=== PATIENT | male | born 1970 | race Caucasian/White ===

== ENCOUNTER 2022-04-04 08:43 | Observation (INO) ==
[2022-04-04] MEDS ORDERED: SODIUM CHLORIDE 0.9% 500 ML IV ONE (09:23)
[2022-04-04 10:08] LABS: Basophils # (auto) 0.06 K/uL (0-0.2); Basophils % (auto) 0.3 %; Hematocrit (blood only) 45.4 % (40.1-51.0); Hemoglobin 16.1 g/dl (14.0-18.0); Immature Granulocytes % (auto) 0.9 %; Lymphocytes % (auto) 7.9 %; Mean Corpuscular Hemoglobin 30.9 pg (25.0-34.0); Mean Corpuscular Hgb Conc 35.5 g/dL (32.0-36.0); Mean Corpuscular Volume 87.1 fL (80.0-100.0); Mean Platelet Volume 9.7 fL (9.4-12.4); Monocytes % (auto) 7.5 %; Neutrophils # (auto) 18.99 K/uL (1.4-6.5); Neutrophils % (auto) 83.4 %; Platelet Count 215 K/uL (130-400); RDW Coefficient of Variation 11.8 % (11.5-14.5); RDW Standard Deviation 37.3 fL (36.4-46.3); Red Blood Count 5.21 M/uL (4.63-6.08); White Blood Count 22.75 K/ul (4.8-10.8)
--- NOTE | 2022-04-04 10:25 | Emergency Department Note ---
Impression & Plan Acute appendicitis, Abdominal pain, Leukocytosis ED Provider Note NAME: JADA NJ AGE: 51 SEX: M : 1970 ARRIVES VIA: Walk-In INFORMANT: Patient ED PROVIDER(S): Jem Acosta DO CHIEF COMPLAINT: RLQ abd pain HPI: Patient is a 51-year-old male who presents to the ER for right lower quadrant abdominal pain. He notes this started this past Sunday. Sunday night he believes he ate something at home, that did not sit well in his stomach. He had diarrhea following this. He has had temperatures as high as 100. He has been taking Tylenol and Motrin intermittently. He was seen and evaluated at outside facility and had a white count 21,000. Denies any dysuria, urgency, or frequency. Pain is focal sharp stabbing and a 5 out of 10 in that right lower quadrant. He has not been eating or drinking much. ROS: See above HPI for pertinent positives & negatives. A total of 10 systems reviewed and were otherwise negative. PAST MEDICAL HISTORY:See Below PAST SURGICAL HISTORY:See Below FAMILY HISTORY:See Below SOCIAL HISTORY:See Below HOME MEDICATIONS:See Below ALLERGIES:See Below VITALS:See Below PHYSICAL EXAMINATION: GENERAL: Sitting up in bed, alert, well appearing, well nourished, no distress, non-toxic EYE EXAM: normal conjunctiva. OROPHARYNX: no exudate, no erythema, lips, buccal mucosa, and tongue normal and mucous membranes are moist NECK: supple, no nuchal rigidity, no adenopathy, non-tender LUNGS: Clear to auscultation. Normal chest wall mechanics HEART: no murmurs, S1 normal and S2 normal ABDOMEN: abdomen soft, RLQ abd pain, normo-active bowel sounds, no masses, no rebound or guarding. UPPER EXTREMITIES: upper extremities are grossly normal. LOWER EXTREMITIES: No pitting edema. NEURO EXAM: Normal sensorium, cranial nerves II-XII grossly intact, normal speech, no gross weakness of arms, no gross weakness of legs. MEDICAL DECISION MAKING: Patient is a 51-year-old male who presents the ER for right lower quadrant abdominal pain. IV was established blood work was obtained. Labs show l eukocytosis of 22,000. No significant anemia. BMP along with LFTs bilirubin and lipase was remarkable for T bili of 1.7. UA was unremarkable. COVID was negative. CT abdomen pelvis shows acute appendicitis with significant mount of surrounding infiltration. Patient was given Zosyn. He was given Toradol. He was updated bedside. Discussed with Dr. Torres who evaluate the patient and please see his note for further management. Triage Nursing notes reviewed. Limited review of prior medical records performed Vital Signs: reviewed and remarkable for tachy Differential diagnosis: Differential diagnoses includes but is not limited to gastritis, peptic ulcer disease, GERD, gallbladder disease, pancreatitis, small bowel obstruction, acute coronary syndrome, pericarditis, ischemic bowel, irritable bowel disease, irritable bowel syndrome, appendicitis, diverticulitis, malignancy, hernia, urinary tract infection, torsion, perforation, trauma, infectious. ER treatment provided: See below Diagnostics interpreted by me: ECG: none Cardiac Monitoring: An order was placed for continuous cardiac monitoring. The monitor shows a rate of 110 with sinus rhythm. Laboratory studies: As stated above and show below. Imaging studies: CT abdomen pelvis shows acute appendicitis. Consultation(s): none Procedures: none Critical Care: None Past Med/Surg History Medical History (Updated 04/04/22 @ 13:50 by Jem Acosta DO) Amputation finger left ring finger Seasonal allergies Surgical History (Updated 04/04/22 @ 13:43 by Tatiana Hendrickson RN) Hx of colonoscopy Hx of hand surgery left hand Social History (Updated 04/04/22 @ 13:27 by Tatiana Hendrickson RN) Smoking Status: Never smoker Communication Ability: Effective Hearing Ability: Normal Beliefs That Will Affect Care: None marital status: Current Living Situation: Spouse current occupational status: employed current occupation: teacher Feels Safe at Home: Yes Allergies Allergies Allergy/AdvReac Type Severity Reaction Status Date / Time No Known Allergies Allergy Unknown Verified 04/04/22 11:31 Home Meds Home Medications Medication Instructions Recorded Confirmed montelukast 10 mg tablet 10 mg PO DAILY in the summer 04/04/22 04/04/22 Results & Data (ED) Vital Signs Vital Signs - 24 hr 04/04/22 09:07 04/04/22 10:44 04/04/22 12:09 Temperature 37.5 C Temperature Source Temporal Artery Scan Pulse Rate 116 H Pulse Rate [Finger] 95 H 97 H Pulse Rhythm [Finger] Pulse Strength [Finger] Respiratory Rate 20 16 16 Respiratory Effort / Characteristics Non-Labored Non-Labored Spontaneous Non-Labored Spontaneous Respiratory Depth Normal Normal Normal Respiratory Pattern Blood Pressure 120/76 Blood Pressure [Left Arm] Blood Pressure [Right Arm] 127/57 L 132/69 Blood Pressure Mean 90 Blood Pressure Mean [Left Arm] Blood Pressure Mean [Right Arm] 80 90 Blood Pressure Position [Left Arm] Pulse Oximetry 96 96 95 Oxygen Delivery Method Room Air Room Air Room Air Sepsis Recent Fever Within 48 Hours No Sepsis New/Unexplained Change in Mental Status N/A Sepsis Action Taken by Nursing No Action Required 04/04/22 13:07 Temperature 37.3 C Temperature Source Oral Pulse Rate Pulse Rate [Finger] 101 H Pulse Rhythm [Finger] Regular Pulse Strength [Finger] Normal Respiratory Rate 18 Respiratory Effort / Characteristics Non-Labored Spontaneous Respiratory Depth Normal Respiratory Pattern Regular Blood Pressure Blood Pressure [Left Arm] 123/67 Blood Pressure [Right Arm] Blood Pressure Mean Blood Pressure Mean [Left Arm] 85 Blood Pressure Mean [Right Arm] Blood Pressure Position [Left Arm] Lying Pulse Oximetry 94 Oxygen Delivery Method Room Air Sepsis Recent Fever Within 48 Hours Sepsis New/Unexplained Change in Mental Status Sepsis Action Taken by Nursing Laboratory Data Result diagrams: 04/04/22 09:55 04/04/22 09:55 Lab Results 04/04/22 04/04/22 04/04/22 Range/Units 09:55 09:55 10:21 WBC 22.75 H (4.8-10.8) K/ul RBC 5.21 (4.63-6.08) M/uL Hgb 16.1 (14.0-18.0) g/dl Hct 45.4 (40.1-51.0) % MCV 87.1 (80.0-100.0) fL MCH 30.9 (25.0-34.0) pg MCHC 35.5 (32.0-36.0) g/dL RDW Std Deviation 37.3 (36.4-46.3) fL RDW Coeff of [place] 11.8 (11.5-14.5) % Plt Count 215 (130-400) K/uL MPV 9.7 (9.4-12.4) fL Immature Gran % (Auto) 0.9 % Neut % (Auto) 83.4 % Lymph % (Auto) 7.9 % [place] % (Auto) 7.5 % Eos % (Auto) 0.0 % Baso % (Auto) 0.3 % Neut # (Auto) 18.99 H (1.4-6.5) K/uL Lymph # (Auto) 1.80 (1.2-3.4) K/uL [place] # (Auto) 1.70 H (0.24-0.82) K/uL Eos # (Auto) 0.00 (0-0.50) K/uL Baso # (Auto) 0.06 (0-0.2) K/uL Immature Gran # (Auto) 0.20 H (0.00-0.02) K/uL Sodium 135 L (136-145) mmol/L Potassium 4.1 (3.5-5.1) mmol/L Chloride 99 (98-107) mmol/L Carbon Dioxide 28 (21-32) mmol/L Anion Gap 8 (3-11) BUN 16 (6-23) mg/dl Creatinine 1.06 (0.6-1.4) mg/dl Est Cr Clr Drug Dosing 93.2 ml/min Est GFR ( Amer) 93.7 ml/min Est GFR (Non-Af Amer) 80.9 ml/min BUN/Creatinine Ratio 15.1 (10-20) Glucose 103 H (70-99(Fasting)) mg/dl Calcium 9.6 (8.5-10.1) mg/dl Total Bilirubin 1.7 H (0.2-1.0) mg/dl AST 16 (13-39) U/L ALT 21 (7-52) U/L Alkaline Phosphatase 59 (34-104) U/L Total Protein 7.9 (6.0-8.3) gm/dl Albumin 4.4 (3.4-5.0) gm/dl Globulin 3.5 (2.5-4.0) gm/dl Albumin/Globulin Ratio 1.3 (0.9-2) Lipase 5 L (11-82) U/L Urine Color Urine Appearance (Clear) Urine pH (4.5-7.5) Ur Specific [place] (1.000-1.030) Urine Protein (Negative) Urine Glucose (UA) (Negative) Urine Ketones (Negative) Urine Blood (Negative) Urine Nitrite (Negative) Urine Bilirubin (Negative) Urine Urobilinogen (Negative) Ur Leukocyte Esterase (Negative) Urine WBC (Auto) (0-5) /hpf Urine RBC (Auto) (0-4) /hpf U Hyaline Cast (Auto) (0-5) /lpf U Epithel Cells (Auto) (0-5) /lpf Urine Bacteria (Auto) (Negative) SARS-CoV-2, RNA, NAAT NEGATIVE (NEGATIVE) 04/04/22 Range/Units 10:49 WBC (4.8-10.8) K/ul RBC (4.63-6.08) M/uL Hgb (14.0-18.0) g/dl Hct (40.1-51.0) % MCV (80.0-100.0) fL MCH (25.0-34.0) pg MCHC (32.0-36.0) g/dL RDW Std Deviation (36.4-46.3) fL RDW Coeff of [place] (11.5-14.5) % Plt Count (130-400) K/uL MPV (9.4-12.4) fL Immature Gran % (Auto) % Neut % (Auto) % Lymph % (Auto) % [place] % (Auto) % Eos % (Auto) % Baso % (Auto) % Neut # (Auto) (1.4-6.5) K/uL Lymph # (Auto) (1.2-3.4) K/uL [place] # (Auto) (0.24-0.82) K/uL Eos # (Auto) (0-0.50) K/uL Baso # (Auto) (0-0.2) K/uL Immature Gran # (Auto) (0.00-0.02) K/uL Sodium (136-145) mmol/L Potassium (3.5-5.1) mmol/L Chloride (98-107) mmol/L Carbon Dioxide (21-32) mmol/L Anion Gap (3-11) BUN (6-23) mg/dl Creatinine (0.6-1.4) mg/dl Est Cr Clr Drug Dosing ml/min Est GFR ( Amer) ml/min Est GFR (Non-Af Amer) ml/min BUN/Creatinine Ratio (10-20) Glucose (70-99(Fasting)) mg/dl Calcium (8.5-10.1) mg/dl Total Bilirubin (0.2-1.0) mg/dl AST (13-39) U/L ALT (7-52) U/L Alkaline Phosphatase (34-104) U/L Total Protein (6.0-8.3) gm/dl Albumin (3.4-5.0) gm/dl Globulin (2.5-4.0) gm/dl Albumin/Globulin Ratio (0.9-2) Lipase (11-82) U/L Urine Color Dark Yellow Urine Appearance Clear (Clear) Urine pH 5.0 (4.5-7.5) Ur Specific [place] 1.021 (1.000-1.030) Urine Protein Trace H (Negative) Urine Glucose (UA) Negative (Negative) Urine Ketones 2+ H (Negative) Urine Blood 1+ H (Negative) Urine Nitrite Negative (Negative) Urine Bilirubin Negative (Negative) Urine Urobilinogen Negative (Negative) Ur Leukocyte Esterase Negative (Negative) Urine WBC (Auto) 1-5 (0-5) /hpf Urine RBC (Auto) 0-4 (0-4) /hpf U Hyaline Cast (Auto) 1-5 (0-5) /lpf U Epithel Cells (Auto) 5-10 H (0-5) /lpf Urine Bacteria (Auto) Negative (Negative) SARS-CoV-2, RNA, NAAT (NEGATIVE) Administered Medications Discontinued Medications Sodium Chloride (Nss) 500 mls @ 999 mls/hr IV .Q31M ONE Stop: 04/04/22 09:53 Last Infusion: 04/04/22 10:41 Dose: 0 mls/hr Documented By: Admin: 04/04/22 10:03 Dose: 999 mls/hr Documented By: ELAN Piperacillin Sod/Tazobactam Sod (Zosyn) 4.5 gm in 120 mls @ 240 mls/hr IV NOW ONE Stop: 04/04/22 11:51 Last Infusion: 04/04/22 12:39 Dose: 0 mls/hr Documented By: Admin: 04/04/22 12:07 Dose: 240 mls/hr Documented By: [place] Ioversol (Optiray 350 100ml) 84 ml IV ONCE ONE Stop: 04/04/22 11:00 Last Admin: 04/04/22 11:00 Dose: 84 ml Documented By: CHANDA Ketorolac Tromethamine (Ketorolac Tromethamine 15 Mg/Ml Vial) 15 mg IV NOW ONE Stop: 04/04/22 10:36 Last Admin: 04/04/22 10:41 Dose: 15 mg Documented By: NMS Imaging Data Radiologist's Impression: Abdomen/Pelvis CT 04/04/22 09:[address] WITH IV CONTRAST CT DOSE: 815.90 mGycm HISTORY: Acute right lower quadrant abdominal pain RLQ abd pain TECHNIQUE: Multiaxial CT images of the abdomen and pelvis were performed foll owing the IV administration of 84 cc of Optiray, A dose lowering technique was utilized adhering to the principles of ALARA. COMPARISON STUDY: None. FINDINGS: Clear lung bases. No pneumatosis or pneumoperitoneum. The imaged inferior cardiac chambers are unremarkable. The spleen, pancreas, gallbladder and adrenal glands are within normal limits. The liver is within normal limits. Patency of the hepatic and portal veins. Unremarkable kidneys. No hydronephrosis. Subcentimeter hypodensity of the superior pole left kidney is too small to characterize, likely a cyst. The bladder wall thickening with partial distention. Mild prostamegaly. No abdominal aortic aneurysm or lymphadenopathy identified. No bowel obstruction. Scattered air-fluid levels are noted within the right hemicolon. Mild wall thickening of the terminal ileum is likely reactive. The appendix is dilated and fluid-filled measuring up to 1.3 cm transversely. There are a few subcentimeter appendicolith is noted measuring up to 6 mm. Moderate periappendiceal inflammation with trace amount of free fluid within the abdominal right lower quadrant. No abscess. Unremarkable soft tissues. No acute fracture. IMPRESSION: 1. Acute appendicitis with subcentimeter appendicoliths. No pneumoperitoneum or abscess. 2. No bowel obstruction. 3. Additional findings as above. ACT 112: Negative or not required by law. The above report was generated using voice recognition software. It may contain grammatical, syntax or spelling errors. Electronically signed by: Rodolfo Sommer M.D. 04/04/2022 11:59 AM Discharge Plan Visit Data Chief Complaint: Referred by Doctor Stated Complaint: REFERRED BY , CT SCAN ED Provider: Jem Acosta Discharge Problem: Acute appendicitis, Abdominal pain, Leukocytosis Discharge Instructions Interventions: ED Discharge Assessment Last Done: 04/04/22 12:59 Forms Stand Alone Forms: My [facility] [employer] Prescriptions Prescriptions: No Action montelukast 10 mg tablet 10 mg PO DAILY Referrals Referrals: Jaime Ruiz MD [Primary Care Provider] -
[2022-04-04] MEDS ORDERED: KETOROLAC TROMETHAMINE 15 MG/ML VIAL IV ONE (10:35)
[2022-04-04 10:45] LABS: Albumin Globulin Ratio 1.3 (0.9-2); Albumin Level 4.4 gm/dl (3.4-5.0); BUN Creatinine Ratio 15.1 (10-20); Bilirubin,Total 1.7 mg/dl (0.2-1.0); Calcium 9.6 mg/dl (8.5-10.1); Creatinine Clr Calc Pharmacy 93.2 ml/min; Est GFR (African American) 93.7 ml/min; Est GFR (Non-African American) 80.9 ml/min; Globulin 3.5 gm/dl (2.5-4.0); Potassium 4.1 mmol/L (3.5-5.1); Total Protein 7.9 gm/dl (6.0-8.3)
[2022-04-04] MEDS ORDERED: OPTIRAY 350 100ml IV ONE (10:59)
[2022-04-04 11:08] LABS: Appearance Urine Clear (Clear); Bacteria Urine Automated Negative (Negative); Bilirubin Urine Negative (Negative); Blood Urine 1+ (Negative); Color Urine Dark Yellow; Glucose Urine UA Negative (Negative); Ketones Urine 2+ (Negative); Leukocyte Esterase Urine Negative (Negative); Nitrite Urine Negative (Negative); Protein Urine Trace (Negative); RBC Urine Automated 0-4 /hpf (0-4); Specific Gravity Urine 1.021 (1.000-1.030); Urobilinogen Urine Negative (Negative)
[2022-04-04] MEDS ORDERED: PIPERACILLIN/TAZOBACTAM 4.5 GM/120 ML BAG IV ONE (11:22)
--- NOTE | 2022-04-04 12:02 | CT Scan Report ---
ABDOMEN AND PELVIS CT WITH IV CONTRAST CT DOSE: 815.90 mGycm HISTORY: Acute right lower quadrant abdominal pain RLQ abd pain TECHNIQUE: Multiaxial CT images of the abdomen and pelvis were performed following the IV administrat ion of 84 cc of Optiray, A dose lowering technique was utilized adhering to the principles of ALARA. COMPARISON STUDY: None. FINDINGS: Clear lung bases. No pneumatosis or pneumoperitoneum. The imaged inferior cardiac chambers are unremarkable. The spleen, pancreas, gallbladder and adrenal glands are within normal limits. The liver is within normal limits. Patency of the hepatic and portal veins. Unremarkable kidneys. No hydr onephrosis. Subcentimeter hypodensity of the superior pole left kidney is too small to characterize, likely a cyst. The bladder wall thickening with partial distention. Mild prostamegaly. No abdominal a ortic aneurysm or lymphadenopathy identified. No bowel obstruction. Scattered air-fluid levels are noted within the right hemicolon. Mild wall thic kening of the terminal ileum is likely reactive. The appendix is dilated and fluid-filled measuring u p to 1.3 cm transversely. There are a few subcentimeter appendicolith is noted measuring up to 6 mm. Moderate periappendiceal inflammation with trace amount of free fluid within the abdominal right lowe r quadrant. No abscess. Unremarkable soft tissues. No acute fracture. IMPRESSION: 1. Acute appendicitis with subcentimeter appendicoliths. No pneumoperitoneum or abscess. 2. No bowel obstruction. 3. Additional findings as above. ACT 112: Negative or not required by law. The above report was generated using voice recognition software. It may contain grammatical, syntax o r spelling errors. Electronically signed by: Rodolfo Sommer M.D. 04/04/2022 11:59 AM
[2022-04-04] MEDS ORDERED: BACITRACIN OINT 15 GM TUBE ONE (13:04)
[2022-04-04] MEDS ORDERED: LIDOCAINE 1% LOCAL 20 ML VIAL ONE (13:04)
[2022-04-04] MEDS ORDERED: BUPIVACAINE 0.5 % 5 MG/1 ML MPF 30ML VIAL ONE (13:04)
[2022-04-04] MEDS ORDERED: fentaNYL citrate 100 MCG/2 ML VIAL ONE ×2 (13:07→15:11)
[2022-04-04] MEDS ORDERED: ROCURONIUM BROMIDE 10 MG/ML 5 ML VIAL IV ONE (13:07)
[2022-04-04] MEDS ORDERED: DEXAMETHASONE SOD INJ 4 MG/ML VIAL ONE (13:07)
[2022-04-04] MEDS ORDERED: LIDOCAINE 2% 2 ML VIAL/AMP(20MG/ML) INFIL ONE (13:07)
[2022-04-04] MEDS ORDERED: SUGAMMADEX SODIUM 200 MG/2 ML VIAL IV ONE (13:07)
[2022-04-04] MEDS ORDERED: PROPOFOL IV EMULSION 10 MG/ML 20 ML VIAL IV ONE (13:07)
[2022-04-04] MEDS ORDERED: MIDAZOLAM HCL 1 MG/ML 2ML VIAL ONE (13:07)
[2022-04-04] MEDS ORDERED: ONDANSETRON INJ 2 MG/ML 2 ML VIAL ONE (13:07)
[2022-04-04] MEDS ORDERED: ONDANSETRON INJ 2 MG/ML 2 ML VIAL IV PRN ×2 (13:20→16:41)
[2022-04-04] MEDS ORDERED: HYDROmorphone INJ 2 MG/ML SYR/VIAL IV PRN (13:20)
[2022-04-04] MEDS ORDERED: ATROPINE SULFATE 0.1 MG/ML 10ML SYR IV PRN (13:20)
[2022-04-04] MEDS ORDERED: fentaNYL citrate 100 MCG/2 ML VIAL IV PRN (13:20)
[2022-04-04] MEDS ORDERED: ePHEDrine sulfate 50 MG/ML AMP IV PRN (13:20)
--- NOTE | 2022-04-04 13:22 | Anesthesiology Consultation ---
Date of Service April 04, 2022 Assessment & Plan (1) Encounter for pre-operative examination: Chart Review Chart Review: Acceptable Risk for Surgery and Patient NOT seen in Pre Admission Testing Consults Requested none History Surgery Operation Date: 04/04/22 12:00 Proposed Procedures p Laparoscopic Appendectomy - Ayesha Torres MD Height/Weight Height: 5 ft 10 in Weight: 90.3 kg Allergies Allergy/AdvReac Type Severity Reaction Status Date / Time No Known Allergies Allergy Unknown Verified 04/04/22 11:31 Medications Home Medications Medication Instructions Recorded Confirmed Last Taken montelukast 10 mg tablet 10 mg PO DAILY in the summer 04/04/22 04/04/22 Unknown NPO Date Last Intake of Fluids: 04/04/22 Time Last Intake of Fluids: 07:30 Last Intake of Fluids Comment: "water" Date Last Intake of Solids: 04/04/22 Time Last Intake of Solids: 05:30 Last Intake of Solids Comment: "cereal with blueberries" Past Medical History Medical History (Updated 04/04/22 @ 13:22 by Bean Niño MD) Amputation finger left ring finger Seasonal allergies Exercise / Class Metabolic Activity II 4-5 Yardwork/Stairs/Walk up hill Past Surgical History Surgical History (Updated 04/04/22 @ 13:26 by Tatiana Hednrickson RN) Hx of hand surgery left hand Past Anesthesia History No Hx of Anesthesia Complications and No Family Hx of Anesthesia Complications Social History Smoking Status: Never smoker Physical Exam Vital Signs Last Vital Signs Temp 37.3 C 04/04/22 13:07 Pulse 101 H 04/04/22 13:07 Resp 18 04/04/22 13:07 BP 123/67 04/04/22 13:07 Pulse Ox 94 04/04/22 13:07 O2 Del Method 04/04/22 13:07 Testing Laboratory Results 04/04/22 09:55 04/04/22 09:55 Urine Color Dark Yellow 04/04/22 10:49 Urine Appearance Clear (Clear) 04/04/22 10:49 Urine pH 5.0 (4.5-7.5) 04/04/22 10:49 Ur Specific [place] 1.021 (1.000-1.030) 04/04/22 10:49 Urine Protein Trace (Negative) H 04/04/22 10:49 Urine Glucose (UA) Negative (Negative) 04/04/22 10:49 Urine Ketones 2+ (Negative) H 04/04/22 10:49 Urine Nitrite Negative (Negative) 04/04/22 10:49 Ur Leukocyte Esterase Negative (Negative) 04/04/22 10:49 Urine WBC (Auto) 1-5 /hpf (0-5) 04/04/22 10:49 Urine RBC (Auto) 0-4 /hpf (0-4) 04/04/22 10:49 U Hyaline Cast (Auto) 1-5 /lpf (0-5) 04/04/22 10:49 U Epithel Cells (Auto) 5-10 /lpf (0-5) H 04/04/22 10:49 Urine Bacteria (Auto) Negative (Negative) 04/04/22 10:49
--- NOTE | 2022-04-04 13:51 | Surgery Consultation ---
Date of Consultation April 04, 2022 Assessment & Plan (1) Acute appendicitis: pt si a 51 year-old male who presents with 2 days history RLQ pain, IMP: acute appendicitis, plan, I recommend to do laparoscopic appendectomy, possible open, D/W benefits, risks and alternatives of the surgery, the risks - infection, bleeding, injury other organs, sepsis, abscess, incisional hernia, bowel obstruction, pt understood, he agreed with surgery, he signed informed consent, I answered all questions, pre-op antibiotic, History of Present Illness Reason for Consultation: acute appendicitis Requesting Physician: Jem Acosta MD History of Present Illness CHIEF COMPLAINT: RLQ abd pain HPI: Patient is a 51-year-old male who presents ER for right lower quadrant abdominal pain. He notes this started this past Sunday. Sunday night he believes he ate something at home that did not sit well in his stomach. He had diarrhea following this. He has had temperatures as high as 100. He has been taking Tylenol and Motrin intermittently. He was seen and evaluated at outside facility and had a white count 21,000. Denies any dysuria urgency or frequency. Pain is focal sharp stabbing and a 5 out of 10 in that right lower quadrant. He has not been eating or drinking much. I ( Ayesha Torres MD, ) got a call for consult acute appendicitis, I reviewed pt's H/P, labs, Ct scan with pt, ROS: See above HPI for pertinent positives & negatives. A total of 10 systems reviewed and were otherwise negative. Allergies Allergy/AdvReac Type Severity Reaction Status Date / Time No Known Allergies Allergy Unknown Verified 04/04/22 11:31 Home Medications Medication Instructions Recorded Confirmed Type montelukast 10 mg tablet 10 mg PO DAILY in the summer 04/04/22 04/04/22 History Patient History Medical History (Updated 04/04/22 @ 13:50 by Jem Acosta DO) Amputation finger left ring finger Seasonal allergies Surgical History (Updated 04/04/22 @ 13:43 by Tatiana Hendrickson RN) Hx of colonoscopy Hx of hand surgery left hand Social History (Updated 04/04/22 @ 13:27 by Tatiana Hendrickson RN) Smoking Status: Never smoker Communication Ability: Effective Hearing Ability: Normal Beliefs That Will Affect Care: None marital status: Current Living Situation: Spouse current occupational status: employed current occupation: teacher Feels Safe at Home: Yes Review of Systems Constitutional: as per Subjective / HPI Eyes: as per Subjective / HPI Respiratory: as per Subjective / HPI left rib fx Cardiovascular: as per Subjective / HPI Gastrointestinal: as per Subjective / HPI Genitourinary: + as per Subjective / HPI Musculoskeletal: as per Subjective / HPI Neurologic: as per Subjective / HPI Psychiatric: as per Subjective / HPI Endocrine: as per Subjective / HPI Hematologic / Lymphatic: as per Subjective / HPI Physical Exam Constitutional: WD/WN, vitals as above Eyes: PERRL, conjunctivae normal, anicteric sclerae Neck: trachea midline, no thyromegaly Respiratory: normal respiratory effort, lungs clear to auscultation Cardiovascular: RRR, no murmur, no edema Gastrointestinal (Abdomen): soft, tenderness at RLQ, with rebound pain, no distend, BS +, Musculoskeletal: no cyanosis or clubbing, extremities motor strength 5/5 Neurologic: patellar DTR's 2+ bilat, sensation intact Psychiatric: A+Ox3, euthymic affect Results & Data ([facility]) Vital Signs (Past 12 Hours) Vital Signs Temp Pulse Pulse Resp BP BP BP 04/04/22 13:07 37.3 C 101 H 18 123/67 04/04/22 12:09 97 H 16 132/69 04/04/22 10:44 95 H 16 127/57 L 04/04/22 09:07 37.5 C 116 H 20 120/76 Pulse Ox O2 Del Method 04/04/22 13:07 94 Room Air 04/04/22 12:09 95 Room Air 04/04/22 10:44 96 Room Air 04/04/22 09:07 96 Room Air Laboratory Results Abnormal lab results 04/04/22 04/04/22 04/04/22 Range/Units 09:55 09:55 10:49 WBC 22.75 H (4.8-10.8) K/ul Neut # (Auto) 18.99 H (1.4-6.5) K/uL [place] # (Auto) 1.70 H (0.24-0.82) K/uL Immature Gran # (Auto) 0.20 H (0.00-0.02) K/uL Sodium 135 L (136-145) mmol/L Glucose 103 H (70-99(Fasting)) mg/dl Total Bilirubin 1.7 H (0.2-1.0) mg/dl Lipase 5 L (11-82) U/L Urine Protein Trace H (Negative) Urine Ketones 2+ H (Negative) Urine Blood 1+ H (Negative) U Epithel Cells (Auto) 5-10 H (0-5) /lpf Diagnostic Findings ABDOMEN AND PELVIS CT WITH IV CONTRAST CT DOSE: 815.90 mGycm HISTORY: Acute right lower quadrant abdominal pain RLQ abd pain TECHNIQUE: Multiaxial CT images of the abdomen and pelvis were performed following the IV administration of 84 cc of Optiray, A dose lowering technique was utilized adhering to the principles of ALARA. COMPARISON STUDY: None. FINDINGS: Clear lung bases. No pneumatosis or pneumoperitoneum. The imaged inferior cardiac chambers are unremarkable. The spleen, pancreas, gallbladder and adrenal glands are within normal limits. The liver is within normal limits. Patency of the hepatic and portal veins. Unremarkable kidneys. No hydronephrosis. Subcentimeter hypodensity of the superior pole left kidney is too small to characterize, likely a cyst. The bladder wall thickening with partial distention. Mild prostamegaly. No abdominal aortic aneurysm or lymphadenopathy identified. No bowel obstruction. Scattered air-fluid levels are noted within the right hemicolon. Mild wall thickening of the terminal ileum is likely reactive. The appendix is dilated and fluid-filled measuring up to 1.3 cm transversely. There are a few subcentimeter appendicolith is noted measuring up to 6 mm. Moderate periappendiceal inflammation with trace amount of free fluid within the abdominal right lower quadrant. No abscess. Unremarkable soft tissues. No acute fracture. IMPRESSION: 1. Acute appendicitis with subcentimeter appendicoliths. No pneumoperitoneum or abscess. 2. No bowel obstruction. 3. Additional findings as above. ACT 112: Negative or not required by law.
--- NOTE | 2022-04-04 13:57 | History & Physical Bridge Note ---
Date of Service April 04, 2022 History & Physical Bridge Note I have examined the patient, reviewed the History & Physical and in the interval since the performance of the History & Physical I have noted the following changes of clinical significance: no changes noted
[2022-04-04] MEDS ORDERED: ACETAMINOPHEN 1000 MG/100 ML IV IV ONE (14:31)
--- NOTE | 2022-04-04 15:13 | Post Operative Brief Note ---
Immediate Post Op Note v1 Date of Surgery April 04, 2022 Pre & Post Diagnosis Operation Date: 04/04/22 12:00 Pre-Op Diagnosis: Acute Appendicitis Post-Op Diagnosis: Acute Appendicitis I identified the patient and participated in the time-out.: Yes Procedure Operation Date: 04/04/22 12:00 Actual Procedures p Laparoscopic Appendectomy(Not Applicable) - Ayesha Torres MD Surgeon Ayesha Torres MD [employer] PRINCESS Hanna Estimated Blood Loss 10 Findings Consistent with Post-Op Diagnosis perforated appendicitis with gangrenous, Fluids 1200ml Specimens appendix Drains Seth-Krueger Drain (10fr flat) Anesthesia Type General Complications none Disposition Accompanied Patient To Recovery: Yes
--- NOTE | 2022-04-04 16:08 | Anesthesiology Progress Note ---
Date of Service April 04, 2022 Anesthesia Post Procedure Vital Signs Vital Signs: Temp Pulse Pulse Pulse Resp BP BP 04/04/22 15:50 84 15 115/67 04/04/22 15:40 79 13 106/65 04/04/22 15:30 79 13 108/68 04/04/22 15:24 76 13 92/58 L 04/04/22 13:07 37.3 C 101 H 18 123/67 04/04/22 12:09 97 H 16 04/04/22 10:44 95 H 16 04/04/22 09:07 37.5 C 116 H 20 120/76 BP Pulse Ox O2 Del Method O2 Flow Rate 04/04/22 15:50 97 Room Air 04/04/22 15:40 97 Oxymask 10 04/04/22 15:30 97 Oxymask 10 04/04/22 15:24 97 Oxymask 10 04/04/22 13:07 94 Room Air 04/04/22 12:09 132/69 95 Room Air 04/04/22 10:44 127/57 L 96 Room Air 04/04/22 09:07 96 Room Air Pain Intensity Right Lower Abdomen: Pain Intensity: 3 Transfer of Care Handoff Completed per policy Notes Mental Status: alert / awake / arousable and participated in evaluation Patient Amnestic to Procedure: Yes Nausea / Vomiting: adequately controlled Pain: adequately controlled Airway Patency, RR, SpO2: stable & adequate BP & HR: stable & adequate Hydration State: stable & adequate Anesthetic Complications: no major complications apparent and Pt Satisfied with anesthetic care
[2022-04-04] MEDS ORDERED: oxyCODONE/ACETAMINOPHEN 5mg/325mg TAB PO PRN ×3 (16:41→16:55)
[2022-04-04] MEDS ORDERED: HYDROmorphone INJ 0.5 MG/0.5 ML SYR IV PRN (16:41)
--- NOTE | 2022-04-04 16:52 | Electrocardiogram Report ---
Test Reason : Blood Pressure : / mmHG Vent. Rate : 101 BPM Atrial Rate : 101 BPM P-R Int : 174 ms QRS Dur : 086 ms QT Int : 324 ms P-R-T Axes : 036 033 016 degrees QTc Int : 420 ms Sinus tachycardia Otherwise normal ECG No previous ECGs available Confirmed by Cruz Reyes ([id number]) on 04/04/2022 4:52:32 PM Referred By: Venancio Lara Confirmed By:Cruz Reyes
[2022-04-04] MEDS: LACTATED RINGER'S 1,000 ML IV SCH (17:18)
[2022-04-04] MEDS: PIPERACILLIN/TAZOBACTAM 3.375 GM in DEXTROSE 5% 100 ML IV SCH (17:29)
[2022-04-04] MEDS: ACETAMINOPHEN 325 MG TAB PO PRN (17:56)
[2022-04-05] MEDS: PIPERACILLIN/TAZOBACTAM 3.375 GM in DEXTROSE 5% 100 ML IV SCH ×3 (01:21→16:12)
--- NOTE | 2022-04-05 01:29 | Operative Report (OR) ---
DATE OF PROCEDURE: 04/04/2022. PREOPERATIVE DIAGNOSIS: Acute appendicitis. POSTOPERATIVE DIAGNOSIS: Acute appendicitis, perforated appendicitis. OPERATION: Laparoscopic appendectomy. SENTHIL drainage x1. SURGEON: Ayesha Torres MD PARTY COORDINATOR: Randi Whitaker PA-C ANESTHESIA: General. ESTIMATED BLOOD LOSS: About 10 mL. FINDINGS: Acute appendicitis with perforation. COMPLICATIONS: None. INDICATIONS FOR THE PROCEDURE: This is a 51-year-old gentleman who presented with a 2-day history of right lower quadrant pain. The patient had a CT scan diagnosis of acute appendicitis. I recommended to do laparoscopic appendectomy, possible open. I did talk to the patient about the benefits, risks, alternate procedures. I indicated the risks may include, but not limited to, such as bleeding, infection, abscess, sepsis, injury to other organs, bowel obstruction, incisional hernia. The patient understands and he signed informed consent and I answered all questions. DETAILS OF PROCEDURE: After we identified the patient and verified the procedure, we brought in the patient to the OR, put the patient in the supine position on the OR table. The patient received SCDs on bilateral legs to prevent DVT. Also, the patient received 3.375 grams Zosyn IV for prophylactic antibiotic. The patient received general anesthesia without difficulty. The abdomen was prepped and draped in routine sterile fashion. After timeout, I injected the local anesthesia by using 1% lidocaine mixed with 0.5% Marcaine just above the umbilicus. Then, I made a small incision just above the umbilicus, opened fascia, opened peritoneum. Under direct vision, I put a Homero trocar in, connected to CO2 to create pneumoperitoneum, flow rate at 6 liters per minute, pressure not more than 14 mmHg. Once we got a nice pneumoperitoneum, we put a camera in, looked around the abdomen. It showed normal finding on the small bowel and large bowel; however, significant inflammation on the right lower quadrant. At this moment, we put another two 5 mm trocars on the left lower quadrant area. We used the grasper and mobilized the right quadrant area and then we found the patient had significant acute appendicitis with a perforated appendix. There was some pus, we did suction it out, and we used the Harmonic scalpel for dissection of the appendix. However, the patient had the base of appendix attached to the cecum, it was at this moment difficult to see, so I used 45 mm Endo-KASHMIR stapler for transection on the half appendix and then we used the grasper to hold the remainder of the appendix. Again, we used the Harmonic to mobilized the base of appendix. Once I completely mobilized the base of appendix, I used another 45 mm Endo-KASHMIR stapler for transection on the base of appendix, rechecked, no active bleeding, staple line intact. No leak. Then, we removed the two pieces of the appendix through the catch bag. Then, we reinserted the Homero trocar in, connected to CO2 to create pneumoperitoneum. Again, based on significant inflammation with a perforated appendix, I decided to put one 10 mm SENTHIL drainage on the right lower quadrant area. Hemostasis obtained. We fixed the SENTHIL drainage on the skin by using 3-0 nylon. Then, we removed all trocars under direct vision. No active bleeding from the trocar site. Pneumoperitoneum was released. Then I closed the umbilical incision fascial layer by using 0 Vicryl [id number] x2, closed subcutaneous layer by using 2-0 Vicryl interruptedly, closed skin by using 4-0 Vicryl continuous running, closed another 5 mm trocar site skin only by using 4- 0 Vicryl. Then, we put the dressing on. The patient tolerated the procedure well. All the instrument, needle, sponge counts were correct x2 at the end of the case. The patient was transferred to recovery room in stable condition. After the procedure, I did talk to the patient about the OR finding and the procedure we did, he understands. The specimen was sent to pathology. The first front ventilator, Randi, was necessary for this procedure. Her role was to hold the camera, retraction, and exposure. Job ID: [id number] [facility]
[2022-04-05] MEDS: LACTATED RINGER'S 1,000 ML IV SCH (04:32)
[2022-04-05] MEDS: MONTELUKAST SODIUM 10 MG TABLET PO SCH (08:17)
[2022-04-05 08:56] LABS: Basophils # (auto) 0.02 K/uL (0-0.2); Basophils % (auto) 0.1 %; Hematocrit (blood only) 38.8 % (40.1-51.0); Hemoglobin 13.7 g/dl (14.0-18.0); Immature Granulocytes # (auto) 0.15 K/uL (0.00-0.02); Immature Granulocytes % (auto) 0.8 %; Lymphocytes # (auto) 0.93 K/uL (1.2-3.4); Lymphocytes % (auto) 4.8 %; Mean Corpuscular Hemoglobin 30.5 pg (25.0-34.0); Mean Corpuscular Hgb Conc 35.3 g/dL (32.0-36.0); Mean Corpuscular Volume 86.4 fL (80.0-100.0); Mean Platelet Volume 10.1 fL (9.4-12.4); Monocytes # (auto) 1.02 K/uL (0.24-0.82); Monocytes % (auto) 5.3 %; Neutrophils # (auto) 17.29 K/uL (1.4-6.5); Platelet Count 208 K/uL (130-400); RDW Coefficient of Variation 11.6 % (11.5-14.5); RDW Standard Deviation 36.7 fL (36.4-46.3); Red Blood Count 4.49 M/uL (4.63-6.08); White Blood Count 19.41 K/ul (4.8-10.8)
--- NOTE | 2022-04-05 09:14 | Surgery Progress Note ---
Date of Service April 05, 2022 Assessment & Plan (1) Acute appendicitis: Plan: POD # 1 s/p laparoscopic appendectomy with drain placement -afebrile, vss - leukocytosis improved to 19k - pain controlled - no n,v Plan: Continue pain management continue IV Zosyn continue mathew drain to bulb suction ambulate hallway advance diet as tolerated repeat am cbc likely home tomorrow with mathew drain Dr. Torres has seen and examined pt, agrees with above. Admission and Anticipated Discharge Date Admission Date: April 04, 2022 Subjective feeling better pain controlled tolerated clear liquids Physical Exam Constitutional: WD/WN, vitals as above no acute distress and not ill appearing Neck: normal visual inspection and trachea midline Respiratory: normal respiratory effort; no respiratory distress and no labored breathing Gastrointestinal (Abdomen): Inspection/Auscultation: abdomen normal to inspection, + abdominal surgical incision (covered with clean/dry dressings) and + abdominal surgical drain present (cloudy serosanguineous); abdomen not distended Percussion/Palpation: + abdomen tender (at incision sites) and abdomen soft; no guarding and abdomen not rigid Skin: no rashes, warm and dry Psychiatric: A+Ox3, euthymic affect Results & Data ([facility]) Vital Signs (Past 12 Hours) Vital Signs Temp Pulse Resp BP Pulse Ox O2 Del Method 04/05/22 08:00 Room Air 04/05/22 07:32 37.1 C 101 H 16 129/77 97 Room Air 04/05/22 02:24 36.6 C 71 18 114/63 96 Room Air 04/04/22 22:09 36.6 C 74 18 95/61 L 95 Room Air Laboratory Results 04/05/22 04/05/22 Range/Units 08:16 08:16 WBC 19.41 H (4.8-10.8) K/ul RBC 4.49 L (4.63-6.08) M/uL Hgb 13.7 L (14.0-18.0) g/dl Hct 38.8 L (40.1-51.0) % MCV 86.4 (80.0-100.0) fL MCH 30.5 (25.0-34.0) pg MCHC 35.3 (32.0-36.0) g/dL RDW Std Deviation 36.7 (36.4-46.3) fL RDW Coeff of [place] 11.6 (11.5-14.5) % Plt Count 208 (130-400) K/uL MPV 10.1 (9.4-12.4) fL Immature Gran % (Auto) 0.8 % Neut % (Auto) 89.0 % Lymph % (Auto) 4.8 % [place] % (Auto) 5.3 % Eos % (Auto) 0.0 % Baso % (Auto) 0.1 % Neut # (Auto) 17.29 H (1.4-6.5) K/uL Lymph # (Auto) 0.93 L (1.2-3.4) K/uL [place] # (Auto) 1.02 H (0.24-0.82) K/uL Eos # (Auto) 0.00 (0-0.50) K/uL Baso # (Auto) 0.02 (0-0.2) K/uL Immature Gran # (Auto) 0.15 H (0.00-0.02) K/uL Sodium 136 (136-145) mmol/L Potassium 4.1 (3.5-5.1) mmol/L Chloride 102 (98-107) mmol/L Carbon Dioxide 28 (21-32) mmol/L Anion Gap 6 (3-11) BUN 13 (6-23) mg/dl Creatinine 0.90 (0.6-1.4) mg/dl Est Cr Clr Drug Dosing 109.8 ml/min Est GFR ( Amer) 114.2 ml/min Est GFR (Non-Af Amer) 98.5 ml/min BUN/Creatinine Ratio 14.4 (10-20) Glucose 119 H (70-99(Fasting)) mg/dl Calcium 9.0 (8.5-10.1) mg/dl Total Bilirubin 1.5 H (0.2-1.0) mg/dl AST 18 (13-39) U/L ALT 24 (7-52) U/L Alkaline Phosphatase 60 (34-104) U/L Total Protein 6.8 (6.0-8.3) gm/dl Albumin 3.7 (3.4-5.0) gm/dl Globulin 3.1 (2.5-4.0) gm/dl Albumin/Globulin Ratio 1.2 (0.9-2)
[2022-04-05 09:19] LABS: Albumin Globulin Ratio 1.2 (0.9-2); Albumin Level 3.7 gm/dl (3.4-5.0); BUN Creatinine Ratio 14.4 (10-20); Bilirubin,Total 1.5 mg/dl (0.2-1.0); Creatinine Clr Calc Pharmacy 109.8 ml/min; Est GFR (African American) 114.2 ml/min; Est GFR (Non-African American) 98.5 ml/min; Globulin 3.1 gm/dl (2.5-4.0); Potassium 4.1 mmol/L (3.5-5.1); Total Protein 6.8 gm/dl (6.0-8.3)
[2022-04-05] MEDS: ACETAMINOPHEN 325 MG TAB PO PRN (13:21)
[2022-04-06] MEDS: PIPERACILLIN/TAZOBACTAM 3.375 GM in DEXTROSE 5% 100 ML IV SCH ×2 (01:02→08:28)
[2022-04-06] MEDS: ACETAMINOPHEN 325 MG TAB PO PRN ×2 (01:04→12:03)
[2022-04-06] MEDS: MONTELUKAST SODIUM 10 MG TABLET PO SCH (08:28)
[2022-04-06 08:34] LABS: Basophils # (auto) 0.02 K/uL (0-0.2); Basophils % (auto) 0.2 %; Eosinophils # (auto) 0.03 K/uL (0-0.50); Eosinophils % (auto) 0.2 %; Hematocrit (blood only) 36.7 % (40.1-51.0); Hemoglobin 12.8 g/dl (14.0-18.0); Immature Granulocytes # (auto) 0.07 K/uL (0.00-0.02); Immature Granulocytes % (auto) 0.5 %; Lymphocytes # (auto) 1.81 K/uL (1.2-3.4); Lymphocytes % (auto) 13.7 %; Mean Corpuscular Hemoglobin 30.2 pg (25.0-34.0); Mean Corpuscular Hgb Conc 34.9 g/dL (32.0-36.0); Mean Corpuscular Volume 86.6 fL (80.0-100.0); Mean Platelet Volume 9.9 fL (9.4-12.4); Monocytes # (auto) 0.76 K/uL (0.24-0.82); Monocytes % (auto) 5.7 %; Neutrophils # (auto) 10.55 K/uL (1.4-6.5); Neutrophils % (auto) 79.7 %; Platelet Count 227 K/uL (130-400); RDW Coefficient of Variation 11.7 % (11.5-14.5); RDW Standard Deviation 37.2 fL (36.4-46.3); Red Blood Count 4.24 M/uL (4.63-6.08); White Blood Count 13.24 K/ul (4.8-10.8)
[2022-04-06 09:05] LABS: BUN Creatinine Ratio 14.6 (10-20); Calcium 8.8 mg/dl (8.5-10.1); Est GFR (African American) 114.7 ml/min; Potassium 3.6 mmol/L (3.5-5.1)
--- NOTE | 2022-04-06 11:21 | Surgery Progress Note ---
Date of Service April 06, 2022 Assessment & Plan (1) Acute appendicitis: Plan: POD # 1 s/p laparoscopic appendectomy with drain placement -afebrile, vss - leukocytosis improved to 19k - pain controlled - no n,v Plan: Continue pain management continue IV Zosyn continue mathew drain to bulb suction ambulate hallway advance diet as tolerated repeat am cbc likely home tomorrow with mathew drain Dr. Torres has seen and examined pt, agrees with above. 04/06/2022 11: 18 AM, Dr. Torres POD # 2 s/p laparoscopic appendectomy with drain placement -afebrile, vss - leukocytosis improved to 13k - pain controlled - no n,v Plan: D/C home today, with mathew drain, empty MATHEW every day, to record output, pt agrees with the discharged, I answered all questions, the post-op care instruction was given, F/U me 1 week to remove MATHEW, Admission and Anticipated Discharge Date Admission Date: April 04, 2022 Subjective feeling better pain controlled tolerated clear liquids 04/06/2022 11:16 AM, Dr. Torres pt is doing better, no significant abdominal pain, passed BM, no fever, MATHEW, 30ml, Review of Systems Constitutional: as per Subjective / HPI Eyes: as per Subjective / HPI Respiratory: as per Subjective / HPI left rib fx Cardiovascular: as per Subjective / HPI Gastrointestinal: as per Subjective / HPI Genitourinary: + as per Subjective / HPI Musculoskeletal: as per Subjective / HPI Neurologic: as per Subjective / HPI Psychiatric: as per Subjective / HPI Endocrine: as per Subjective / HPI Hematologic / Lymphatic: as per Subjective / HPI Physical Exam Constitutional: WD/WN, vitals as above Eyes: PERRL, conjunctivae normal, anicteric sclerae Neck: trachea midline, no thyromegaly Respiratory: normal respiratory effort, lungs clear to auscultation Cardiovascular: RRR, no murmur, no edema Gastrointestinal (Abdomen): soft, mild tenderness at incision site, no rebound pain, no distend, MATHEW intact, BS +, all incisions intact, no redness, Musculoskeletal: no cyanosis or clubbing, extremities motor strength 5/5 Neurologic: patellar DTR's 2+ bilat, sensation intact Psychiatric: A+Ox3, euthymic affect Results & Data ([facility]) Vital Signs (Past 12 Hours) Vital Signs Temp Pulse Pulse Resp BP BP Pulse Ox 04/06/22 10:53 36.8 C 81 71 16 135/60 132/69 97 04/06/22 07:52 36.8 C 71 16 135/60 97 O2 Del Method 04/06/22 10:53 04/06/22 07:52 Room Air Laboratory Results Abnormal lab results 04/06/22 Range/Units 08:07 WBC 13.24 H (4.8-10.8) K/ul RBC 4.24 L (4.63-6.08) M/uL Hgb 12.8 L (14.0-18.0) g/dl Hct 36.7 L (40.1-51.0) % Neut # (Auto) 10.55 H (1.4-6.5) K/uL Immature Gran # (Auto) 0.07 H (0.00-0.02) K/uL
--- NOTE | 2022-04-06 19:57 | Discharge Summary (DS) ---
DATE OF ADMISSION: 04/04/2022. DATE OF DISCHARGE: 04/06/2022. ADMISSION DIAGNOSIS: Acute appendicitis. DISCHARGE DIAGNOSES: Acute appendicitis with perforation. OPERATION: Laparoscopic appendectomy. SURGEON: Ayesha Torres MD. DETAILS OF DISCHARGE SUMMARY: This is a 51-year-old gentleman who presented to ED with acute abdomin al pain. The patient had a CT scan diagnosis of acute appendicitis. We took the patient to the OR. We did laparoscopic appendectomy with SENTHIL drainage and the patient tolerated the procedure well. Dur ing the OR, we found the patient had a perforated appendix. After the procedure, the patient was tra nsferred to recovery room and then later on transferred to regular floor. The patient is doing fine. Today is postoperative day #2 and patient had no significant pain, no fever. PHYSICAL EXAMINATION: VITAL SIGNS: Temperature is 36.8, respiratory rate 16, heart rate 81, blood pressure 135/60, O2 satu ration 97% on room air. GENERAL: The patient is alert, awake, oriented x3. HEENT: Within normal limitation. NEUROLOGIC: Intact. NECK: No JVD. CHEST: Bilateral lung sounds clear. HEART: Normal S1 and S2. No murmur. ABDOMEN: Soft, mild tenderness on the incision site. No rebound pain, no distention. All incisions intact. No redness. SENTHIL drainage is intact. Bowel sounds positive and the patient is doing fine. Passes stool. No fever. The patient wanted to go home today. We gave the patient postoperative care instruction. Also, I ga ve the patient 7 days p.o. Cipro plus Flagyl with Percocet pain medication. I will follow up the pat ient in one week to remove the SENTHIL drainage. The patient understands. I answered all questions. Job ID: [id number]
== END 2022-04-06 13:17 | disposition home or self-care (01) ==
LOC: ED 08:43 → 3W 12:59 → INTOOBSV 15:24